=== PATIENT | male | born 1940 | race Caucasian/White ===

== ENCOUNTER → 2018-01-04 | Outpatient (CLI) | payer OTHER, MEDICAID ==
--- NOTE | 2018-01-04 09:31 | RAD ---
EXAM DESCRIPTION: Hand,Left 3 Views CLINICAL HISTORY: PAIN IN LEFT HAND COMPARISON: None. TECHNIQUE: 3 views left FINDINGS: Degenerative changes are observed in the metacarpal carpal articulation of the first digit. Mild distal interphalangeal joint arthritis is observed in the hand. No fracture is detected. IMPRESSION: Degenerative changes are observed. No fracturing is detected. Electronically signed by: John Sauer MD 01/04/2018 9:30 AM CDT
--- NOTE | 2018-01-04 09:32 | RAD ---
EXAM DESCRIPTION: Wrist,Left 3 Views CLINICAL HISTORY: PAIN IN LEFT WRIST COMPARISON: None. TECHNIQUE: 3 views left FINDINGS: Degenerative changes are observed in the metacarpal carpal articulation of the first digit. No fracturing is detected. IMPRESSION: Moderate degenerative changes are observed in the metacarpal carpal articulation of the first digit. Electronically signed by: John Sauer MD 01/04/2018 9:31 AM CDT
== END ==
LOC: RAD 08:26
PROVIDERS: ATTEND Orthopaedic Surgery
DX: M79.642 Pain in left hand (principal); M25.532 Pain in left wrist

== ENCOUNTER → 2018-02-19 | Outpatient (CLI) | payer OTHER, MEDICAID ==
--- NOTE | 2018-02-19 14:21 | MRI ---
EXAM DESCRIPTION: Cervical Spine: MRI. CLINICAL HISTORY: NECK PAIN COMPARISON: None. TECHNIQUE: Multiplanar, high-field MRI, multiple sequences, non-contrast cervical spine. FINDINGS: C3-4: Normal signal in the disc with minimal disc space loss. Tiny posterior bulge almost abutting the cord. Mild canal narrowing with neuroforamina normal caliber. Facets are negative. C4-5: Disc desiccation and minimal anterior disc space loss and bulging. Tiny posterior bulge. Bilateral uncinate spurs. Facets are negative. Borderline bilateral neural foraminal stenosis. Canal narrowing. C5-6: Minimal disc space loss and disc desiccation. Bilateral uncinate spurs. Bilateral moderate foraminal narrowing. Tiny posterior disc bulge with moderate canal narrowing. Facets are negative. C6-7: Disc desiccation posterior broad-based disc bulge. Mild endplate reactive changes. Trace retrolisthesis. Bilateral uncinate spurs. Borderline mild central canal stenosis. Bilateral neural foraminal stenosis. Facets are negative. Normal signal in the C2-3, C7-T1, and T1-2 discs with no bulging. Disc spaces preserved. Canal and neural foramina are patent. Facets unremarkable. Spinal alignment shows kyphosis C2-C4.. No cord compression or cord edema. Atlantoaxial joint negative.. Base of the cerebellar tonsils is at the level of the foramen magnum. Paravertebral soft tissues negative.. Vertebral bodies are not compressed at any level. Normal marrow signal in the remaining vertebral bodies and the posterior elements. IMPRESSION: 1. Disc desiccation C3-4. Mild canal narrowing and neural foramina are normal caliber. 2. Borderline bilateral neural foraminal stenosis at C4-5. Correlate for bilateral C5 radiculopathy. 3. Bilateral moderate neural foraminal narrowing at C5-6 and moderate canal narrowing. 4. Posterior broad-based C6-7 disc bulge. Borderline mild central canal stenosis. Bilateral neural foraminal stenosis. Correlate for bilateral C7 radiculopathy. Electronically signed by: Jason Solis MD 02/19/2018 2:20 PM [facility]
== END ==
LOC: MRI 09:39
PROVIDERS: ATTEND General Practice
DX: M50.30 Other cervical disc degeneration, unspecified cervical region (principal); M50.223 Other cervical disc displacement at C6-C7 level

== ENCOUNTER → 2018-03-15 | Outpatient (CLI) | payer OTHER, MEDICAID ==
--- NOTE | 2018-03-15 10:25 | RAD ---
EXAM DESCRIPTION: Pelvis: CR/DR/XR CLINICAL HISTORY: PAIN IN LEFT HIP COMPARISON: Radiographs of the knee on the same visit. TECHNIQUE: One view FINDINGS: No fracture dislocation. Normal bone density. Bilateral hip joints symmetric with hypertrophic changes on the superior facet margin. Superior lateral joint space narrowing. No abnormal radiodense objects in the soft tissues or joint spaces. IMPRESSION: Severe lateral joint space narrowing of the bilateral hips with hypertrophy of the superior facet margin. This can sometimes be associated with femoral acetabular impingement syndrome. No acute bony abnormality. Electronically signed by: Jason Solis MD 03/15/2018 10:24 AM [facility]
--- NOTE | 2018-03-15 10:26 | RAD ---
4 views left knee Indication: PAIN IN LEFT KNEE Comparison: None. Impression: Severe medial compartment osteoarthritis with complete joint space loss and mild cortical remodeling. Mild to moderate osteoarthritis of the lateral and patellofemoral compartments. Small joint effusion. No acute fracture or malalignment. Surgical clips noted in the posteromedial aspect of the knee. Electronically signed by: Umesh Aguirre MD 03/15/2018 10:24 AM [facility]
== END ==
LOC: RAD 08:59
PROVIDERS: ATTEND Orthopaedic Surgery
DX: M25.562 Pain in left knee (principal); M25.552 Pain in left hip; M17.12 Unilateral primary osteoarthritis, left knee; M25.851 Other specified joint disorders, right hip; M25.852 Other specified joint disorders, left hip

== ENCOUNTER → 2018-03-25 | Outpatient (CLI) | payer OTHER, MEDICAID ==
--- NOTE | 2018-03-25 10:16 | RAD ---
EXAM DESCRIPTION: Knee,Right Complete CLINICAL HISTORY: 77 years Male, PAIN IN RIGHT KNEE TECHNIQUE: 4 views of the right knee were performed. COMPARISON: None available. FINDINGS: The visualized bones appear well mineralized. No acute fracture or dislocation. Moderate to severe tricompartmental osteoarthritic changes are noted with severe medial compartment joint space narrowing as well as osteophytosis along the medial compartment. No evidence of suprapatellar joint effusion. The overlying soft tissues appear grossly unremarkable. IMPRESSION: 1. Moderate to severe tricompartmental osteoarthritis with severe medial compartment joint space narrowing. 2. No acute fracture or dislocation. Electronically signed by: Roge Blount MD 03/25/2018 10:15 AM [facility]
== END ==
LOC: RAD 08:43
PROVIDERS: ATTEND Orthopaedic Surgery
DX: M25.561 Pain in right knee (principal); M17.11 Unilateral primary osteoarthritis, right knee